=== PATIENT | female | born 1985 | race Caucasian/White ===

== ENCOUNTER → 2017-06-05 | Outpatient (CLI) | payer OTHER | LOC: FIMAGING 07:16 | PROVIDERS: ATTEND Advanced Practice Midwife | DX: O35.8XX0 Maternal care for other (suspected) fetal abnormality and damage, not applicable or unspecified (principal); Z3A.22 22 weeks gestation of pregnancy ==

== ENCOUNTER → 2017-07-10 | Outpatient (CLI) | payer OTHER | LOC: FIMAGING 14:58 | PROVIDERS: ATTEND Obstetrics & Gynecology | DX: O36.8930 Maternal care for other specified fetal problems, third trimester, not applicable or unspecified (principal); Z3A.27 27 weeks gestation of pregnancy ==

== ENCOUNTER → 2017-08-21 | Outpatient (CLI) | payer OTHER | LOC: FIMAGING 14:34 | PROVIDERS: ATTEND Advanced Practice Midwife | DX: O35.8XX0 Maternal care for other (suspected) fetal abnormality and damage, not applicable or unspecified (principal); Z3A.33 33 weeks gestation of pregnancy ==

== ENCOUNTER 2017-10-06 03:05 | Observation (INO) | payer OTHER ==
[2017-10-06] MEDS ORDERED: hydrOXYzine HCL 50 MG TAB PO ONE (07:32)
[2017-10-06] MEDS ORDERED: ACETAMINOPHEN 500 MG TAB PO ONE (07:32)
--- NOTE | 2017-10-06 07:34 | PDGENHP ---
History and Physical History and Physical: CARE: [facility] HPI: Patient is a 31 yo G 1 P 1 at 39.6 weeks ega who presents to L&D with complaints of painful contractions since midnight. Denies LOF/VB. Baby active. Tolerating contractions well at this time. States they have been getting stronger throughout night. EDC: 10/07/17 which is based on Ultrasound at 6.5 weeks. Her is complicated by: -h/o genital HSV I - prophylaxis tx with valtrex started at 36 weeks - no current outbreak/lesions - dilated left renal pelvis -per M recommended f/u with ped urology which pt declined. Plan to repeat left renal ultrasound at 2-4 weeks life - if persistent will refer to peds urology at that time. . Review of Systems: Constitutional: Denies any fever, chills, or fatigue HEENT: denies any visual changes, difficulty swallowing, hearing loss Cardiovascular: Denies any chest pain, palpitations, leg swelling Respiratory: denies any cough, wheezing, or shortness of breathe GI: Denies any nausea, vomiting, diarrhea, constipation : denies any dysuria, urgency, frequency, vaginal bleeding Musculoskeletal: denies any muscle or bone pain Skin: denies any rashes Neuro: denies any headache, seizures, lightheadedness, dizziness, or loss of consciousness Psychiatric: denies any depression, anxiety, or SI/HI thoughts HISTORY: Previous OB history: n/a Past medical history: Genital herpes- HSV I - last outbreak 10/2015 ( prophylactic valtrex started 36 weeks) Past surgical history: tonsillectomy age 17 Medications: PNV, iron, valtrex Allergies : clindamycin - bad rash LABS: Rh: B pos ABS: Neg Rubella: Immune HbsAg: NR HIV: NR VDRL: NR 1hr: 126 GC: Neg Chlamydia: Neg Pap: 11/01 WNL GBS: neg BMI: (prepreg) 26 PHYSICAL EXAM: Constitutional: WN, A&Ox3 HEENT: normocephalic atraumatic, supple Heart: RRR, no murmur Chest: CTA-B Abdomen: Soft, nontender, gravid SVE: 70/-1 posterior Extremities: trace edema, negative sammy's sign Neuro: grossly normal Psych: normal affect assessment: Reassuring FHTs, baseline 140s +accels, no decels, moderate variability Contractions: toco q 5-7 mild Assessment: 1) 31 yo G 1 P 0 with IUP@ 2) early latent phase labor with little cervical change after > 4 hours observation 3) GBS neg 4) Cat 1 FHR tracing Plan: Reviewed labor precautions with patient and the likelihood that this is early latent phase labor. Recommended going home with a dose of Vistaril and Tylenol and trying to rest, hydrate, and return to hospital when contractions are stronger and more regular, consistently less than 5 min apart, membranes rupture , decreased movement, or vaginal bleeding. Patient and comfortable with POC. All questions answered.
[2017-10-06] MEDS ORDERED: hydrOXYzine HCL 25 MG TAB PO ONE (07:45)
== END 2017-10-06 08:05 | disposition home or self-care (01) ==
LOC: FLD 03:05
PROVIDERS: ADMIT Obstetrics & Gynecology; ATTEND Obstetrics & Gynecology
DX: O47.1 False labor at or after 37 completed weeks of gestation (principal); O98.313 Other infections with a predominantly sexual mode of transmission complicating pregnancy, third trimester; Z3A.39 39 weeks gestation of pregnancy
CPT/HCPCS: 59025; G0378

== ENCOUNTER 2017-10-06 20:32 | Observation (INO) | payer OTHER ==
[2017-10-06] MEDS ORDERED: CYCLOBENZAPRINE 10 MG TAB PO ONE (21:00)
[2017-10-06] MEDS ORDERED: hydrOXYzine HCL 50 MG TAB PO ONE (22:30)
[2017-10-06] MEDS ORDERED: ACETAMINOPHEN 500 MG TAB PO ONE (22:32)
== END 2017-10-06 23:02 | disposition home or self-care (01) ==
LOC: FLD 20:32
PROVIDERS: ADMIT Advanced Practice Midwife; ATTEND Obstetrics & Gynecology
DX: O47.1 False labor at or after 37 completed weeks of gestation (principal); Z3A.39 39 weeks gestation of pregnancy

== ENCOUNTER 2017-10-07 08:45 | Inpatient (IN) | payer OTHER ==
[2017-10-07] MEDS ORDERED: TERBUTALINE SULFATE 1 MG/ML VIAL IV PRN (09:27)
[2017-10-07] MEDS ORDERED: OXYTOCIN/NORMAL SALINE 1,000 ML IV PRN (09:27)
[2017-10-07] MEDS ORDERED: LIDOCAINE 1% 300 MG/30 ML SDV SC PRN (09:27)
[2017-10-07] MEDS ORDERED: MISOPROSTOL 200 MCG TAB PR PRN (09:27)
[2017-10-07] MEDS ORDERED: LR 1,000 ML IV PRN (09:27)
[2017-10-07] MEDS ORDERED: EPSOM SALT 454 GM TP PRN (09:27)
[2017-10-07] MEDS ORDERED: OLIVE OIL 118 ML BTL MISC PRN (09:27)
[2017-10-07 10:19] LABS: PLATELET COUNT 221 10^3/uL (150-400)
--- NOTE | 2017-10-07 10:38 | PREANESOB ---
Obstetric Pre-Anesthesia Info - General Info Proposed Procedure: jamin NPO Start Time: 08:00 : 1 Para: 0 MYRIAM: 10/07/17 Gestational Age: 40 week(s) and 0 day(s) - Info Status: Full Term - Labor Status Cervical Dilation per last OB SVE: 3 Labor Epidural: Proposed Anesthesia Allergies/Adverse Reactions: Allergy/AdvReac Type Severity Reaction Status Date / Time clindamycin Allergy Severe Rash Verified 10/06/17 03:25 Home Medications: Medication Instructions Recorded Iron 1 tab PO DAILY 10/06/17 Dha 1 tab PO DAILY 10/06/17 Probiotic 1 tab PO DAILY 10/06/17 Valtrex PO DAILY 10/06/17 Visit Medications: Generic Name Dose Route Start Last Admin Trade Name Freq PRN Reason Stop Dose Admin Lactated Ringer's 1,000 mls @ 0 mls/hr 10/07/17 09:27 Lr IV 10/08/17 09:26 PRN PRN SEE PROTOCOL CONDITIONS Protocol Per Protocol Oxytocin/Sodium Chloride 1,000 mls @ 0 mls/hr 10/07/17 09:27 Pitocin 20 Units/Ns (Premix) IV PRN PRN Post Bleeding As Directed Ibuprofen 600 mg 10/07/17 09:27 Motrin PO 04/05/18 09:26 Q6HRS PRN post , inflammation Lidocaine HCl 300 mg 10/07/17 09:27 Lidocaine Hcl 1% SC 04/05/18 09:26 ONCE PRN episiotomy Magnesium Sulfate 454 gm 10/07/17 09:27 Epsom Salt TP 04/05/18 09:26 Q1H PRN perineal discomfort Misoprostol 800 - 1,000 mcg 10/07/17 09:27 Cytotec WA ONCE PRN Vaginal Atony/Bleeding [place] Oil 118 ml 10/07/17 09:27 Sweet Oil MISC 04/05/18 09:26 ONCE PRN perineal massage Terbutaline Sulfate 0.25 mg 10/07/17 09:27 Brethine IV 04/05/18 09:26 ONCE PRN Tachysystole - Anesthesia History Response to Local Anesthetics: Normal Anesthesia & Operative History: No Prior Problems Family Anesthesia History: Not Applicable - Social History Substance Use/Abuse: Denies - Vital Signs Latest Vital Signs (Nursing): per nursing Height/Weight (Nursing): Height 175.01 cm Weight 94.347 kg - Focused Exam Neck exam: FROM Mallampati Score: Class 2 Mouth exam: normal dental/mouth exam Pulmonary: no respiratory distress Cardiovascular: regular rate and rhythym Labs: 10/07/17 10:00 - Plan Anesthetic Plan: JAMIN Consent Signed and on Chart: Yes Patient/Guardian Understands and Agrees to Plan: Yes
--- NOTE | 2017-10-07 10:52 | GHP ---
[f rep st] PREOP HISTORY AND PHYSICAL DATE OF ADMISSION: 10/07/2017 ADMITTING DIAGNOSIS: Intrauterine at 40 weeks' gestation, in active labor. HISTORY OF PRESENT ILLNESS: The patient is a 32-year-old 1, para 0, with a last menstrual pe riod of 12/21/2016 and an EDC of 10/07/2017 confirmed by a 6-1/2 week ultrasound. She has had good p renatal care at [facility] since registration at 6 weeks. Her course has been com plicated only by a history of general HSV, and she has been on prophylaxis since 36 weeks, has no iss ues and the baby has a dilated left renal pelvis and needs Followup after delivery. She has had, oth er than those issues, normal ultrasounds, normal labs in this and has progressed to 40 week s. The patient began having contractions on the evening of the increased in intensity. She pre sented early in the morning on the and was found to be fingertip with irregular contractions. T he patient was discharged home with some medications for rest. She re-presented in the evening of and her cervix was only 1 cm. She was given options of IV morphine sleep here in the hospital versus discharge home again, with medications to rest. The patient opted to go home. She re-presen sonam with increasing contractions every 3-5 minutes the morning of the . On this exam, she is 130s reactive, moderate variability, category 1. She is magdaleno every 3 min utes. Cervix, per RN exam, is 3-4, 80%, -2 and anterior. The patient will be admitted for an epidural for pain control and active labor management. PAST OBSTETRIC HISTORY: The patient has no past obstetrical history. This is her first . PAST GYNECOLOGICAL HISTORY: MAC at age 15, interval 28-35 days, length of 34 days. She had a sure a nd regular last menstrual period in December of 2016. She does have a history of a genital HSV. No othe r history of STDs or abnormal Pap. She has used condoms in the past for control. PAST MEDICAL HISTORY: She has no chronic medical problems. No past medical history. PAST SURGICAL HISTORY: She had a tonsillectomy at age 17 and no other surgeries. ALLERGIES: She is allergic to clindamycin. It gives her a rash. MEDICATIONS: Include vitamins with DHA and acyclovir prophylaxis. LABORATORY DATA: She is B positive. Antibody negative. RPR nonreactive. Rubella immune. Hepatiti s negative. HIV negative. Pap normal. Gonorrhea and chlamydia normal. Verifi normal. AFP normal. 1-hour GTT 126. GBS is negative. SOCIAL HISTORY: The patient is to her . 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 Sh e denies tobacco, alcohol, and drug use. She was born in the [facility]. FAMILY HISTORY: Mother has chronic hypertension and migraines. Maternal grandfather had alcoholism and of stomach cancer. REVIEW OF SYSTEMS: 10-point review of systems is performed and is negative, except for labor symptom s as above. PHYSICAL EXAMINATION: VITAL SIGNS: She is afebrile. Vital signs are stable. Again, heart to fern 130s. Reactive moderate variability category 1. Contractions every 3-5 minutes. PELVIC: Cervical exam, per RN, is 3-4, 80% to 90%, -2 and anterior. I will repeat the exam when the patient is comfortable with her epidural. ASSESSMENT: A 32-year-old 1, para 0, at exactly 40 weeks gestation today, in active labor. PLAN: The patient will be admitted for epidural and active labor management. /[id number]/MODL
[2017-10-07] MEDS ORDERED: NALOXONE HCL 0.4 MG/ML INJ IVP PRN (11:03)
[2017-10-07] MEDS ORDERED: PHENYLEPHRINE HCL 100 MCG/ML SYR IVP PRN (11:03)
[2017-10-07] MEDS ORDERED: ONDANSETRON 4 MG/2 ML VIAL IVP PRN (11:03)
--- NOTE | 2017-10-07 11:14 | POSTANESTH ---
Post Anesthetic Evaluation Cardiovascular Status: Normal, Stable, Similar to Pre-Op Cond Respiratory Status: Normal, Stable, Similar to Pre-op Cond. Level of Consciousness/Mental Status: Can Participate in Eval, Alert and Oriented Pain Control: Adequate, Prn Tx Ordered Nausea/Vomiting Control: Adequate, Prn Tx Ordered Complications Possibly Related to Anesthesia: None Noted
[2017-10-07] MEDS ORDERED: LR 500 ML IV SCH (11:30)
[2017-10-07] MEDS ORDERED: fentaNYL 200 MCG, BUPIVACAINE 0.5% 20 ML in NS 100 ML EP SCH (11:30)
[2017-10-07] MEDS ORDERED: fentaNYL 2MCG/ML/BUP 0.1% RTU 100 ML EP SCH (11:30)
--- NOTE | 2017-10-07 12:32 | OBPROG ---
Labor Progress Note Assessment/Plan: Assessment: 32 y/o @ 40 weeks in active labor. Plan: Good cervical change and now AROM for clear fluid. Continue active labor management. status is reassuring. 10/07/17 12:30 Subjective/Intrapartum Course: 10/07/17 12:28 Pt is now comfortable with her epidural. She is resting. Objective: 10/07/17 10:00 Patient ABO/Rh B POSITIVE 10/07/17 10:00 - SVE Dilation (cm): 6 Effacement (%): 90 Station: -1 Membranes: AROM Amniotic Fluid Color: Clear - Contraction Pattern Assessment Current Contraction Pattern: Regular (Q 3-5) - FHR Assessment Smalls FHR (bpm): 130 FHR Pattern Variability: Moderate FHR Category: 1 - Procedures Non-surgical Procedures: Amniotomy - AP Antepartum Course: 10/07/17 12:29 H/o HSV on Acyclovir prophylaxis. Baby with L renal pylectasis, needs f/up post Oxytocin Orders Assessment - Pre-Induction/Augmentation Assessment Gestational Age: 40 week(s) and 0 day(s) ICD10 Worksheet Patient Problems: Problems Problem Status Onset Normal labor Acute - ICD10 Problem Qualifiers (1) Normal labor
[2017-10-07] MEDS ORDERED: LR 500 ML IV PRN (14:04)
--- NOTE | 2017-10-07 14:04 | OBPROG ---
Labor Progress Note Assessment/Plan: Assessment: 32 y/o @ 40 weeks in active labor. Plan: Good cervical change and now AROM for clear fluid. Continue active labor management. status is reassuring. will begin pitocin if needed to keep active contraction pattern. 10/07/17 12:30 10/07/17 14:03 Subjective/Intrapartum Course: 10/07/17 12:28 Pt is now comfortable with her epidural. She is resting. 10/07/17 14:02 Pt remains comfortable with her epidural. She is aware of mild contractions. Objective: 10/07/17 10:00 Patient ABO/Rh B POSITIVE 10/07/17 10:00 - SVE Dilation (cm): 8 Effacement (%): 80 Station: 0 Membranes: AROM Amniotic Fluid Color: Clear - Contraction Pattern Assessment Current Contraction Pattern: Regular (Q 3-5) - FHR Assessment Smalls FHR (bpm): 130 FHR Pattern Variability: Moderate FHR Category: 1 - Procedures Non-surgical Procedures: Amniotomy - AP Antepartum Course: 10/07/17 12:29 H/o HSV on Acyclovir prophylaxis. Baby with L renal pylectasis, needs f/up post Oxytocin Orders Assessment - Pre-Induction/Augmentation Assessment Gestational Age: 40 week(s) and 0 day(s) ICD10 Worksheet Patient Problems: Problems Problem Status Onset Normal labor Acute - ICD10 Problem Qualifiers (1) Normal labor
[2017-10-07] MEDS ORDERED: OXYTOCIN/NORMAL SALINE 500 ML IV SCH (14:30)
--- NOTE | 2017-10-07 15:56 | OBPROG ---
Labor Progress Note Assessment/Plan: Assessment: 32 y/o @ 40 weeks in active labor. Plan: Pitocin is running now to develop a good labor pattern. Slow cervical change, but good descent of head. Continue current plan and epidural. 10/07/17 12:30 10/07/17 14:03 10/07/17 15:55 Subjective/Intrapartum Course: 10/07/17 12:28 Pt is now comfortable with her epidural. She is resting. 10/07/17 14:02 Pt remains comfortable with her epidural. She is aware of mild contractions. 10/07/17 15:54 Pt is feeling some contractions more on her left side. Some pelvic pressure. Objective: 10/07/17 10:00 Patient ABO/Rh B POSITIVE 10/07/17 10:00 - SVE Dilation (cm): 8 Effacement (%): 90 Station: +1 Membranes: AROM Amniotic Fluid Color: Clear - Contraction Pattern Assessment Current Contraction Pattern: Regular (Q 2-4) - FHR Assessment Smalls FHR (bpm): 130 FHR Pattern Variability: Moderate FHR Category: 1 - Procedures Non-surgical Procedures: Amniotomy - AP Antepartum Course: 10/07/17 12:29 H/o HSV on Acyclovir prophylaxis. Baby with L renal pylectasis, needs f/up post Oxytocin Orders Assessment - Pre-Induction/Augmentation Assessment Gestational Age: 40 week(s) and 0 day(s) ICD10 Worksheet Patient Problems: Problems Problem Status Onset Normal labor Acute - ICD10 Problem Qualifiers (1) Normal labor
[2017-10-07] MEDS ORDERED: HYDROCODONE/APAP 5/325 TAB PO PRN (19:21)
[2017-10-07] MEDS ORDERED: HYDROCORTISONE 0.5% CREAM TP PRN (19:21)
[2017-10-07] MEDS ORDERED: ACETAMINOPHEN 325 MG TAB PO PRN (19:21)
[2017-10-07] MEDS ORDERED: SIMETHICONE 80 MG TAB CHEW PO PRN (19:21)
--- NOTE | 2017-10-07 19:25 | OBDEL ---
Info Type: Vaginal Presentation at Delivery: Vertex L&D Analgesia/Anesthesia Type: Epidural GBS+: No Intrapartum Medications: Generic Name Dose Route Start Last Admin Trade Name Freq PRN Reason Stop Dose Admin Lactated Ringer's 1,000 mls @ 0 mls/hr 10/07/17 09:27 10/07/17 10:30 Lr IV 10/08/17 09:26 1,000 mls PRN PRN Administration SEE PROTOCOL CONDITIONS Protocol Per Protocol Oxytocin/Sodium Chloride 500 mls @ 0 mls/hr 10/07/17 14:30 10/07/17 15:02 Pitocin 30 Units/Ns (Premix) IV 04/05/18 14:29 500 mls CONT SUNDEEP Administration Protocol Per Protocol - Hospital Course Intrapartum: 10/07/17 12:28 Pt is now comfortable with her epidural. She is resting. 10/07/17 14:02 Pt remains comfortable with her epidural. She is aware of mild contractions. 10/07/17 15:54 Pt is feeling some contractions more on her left side. Some pelvic pressure. Indications for Delivery: Spontaneous Labor Vaginal Delivery - Delivery Provider Delivery Physician/CNM: Kelley Garcia - Labor and Delivery Onset of Contractions Date: 10/07/17 Onset of Contractions Time: 01:00 Onset of Contractions Type: Augmented Rupture of Membranes Date: 10/07/17 Rupture of Membranes Time: 12:26 Rupture of Membranes Type: Artificial Amniotic Fluid Color: Clear Dilation Complete Date: 10/07/17 Dilation Complete Time: 18:22 Placenta Delivery Date: 10/07/17 Placenta Delivery Time: 19:09 Total Hours of Labor: 18 Non-surgical Procedures: Amniotomy Laceration: 1st Degree Repair: 3-0, Vicryl Vaginal Sponge Count Correct: Yes Vaginal Needle Count Correct: Yes Vaginal Sweep Performed: No EBL: 200 Delivery Events: Nuchal Cord (loose x 1) - Medications Labor Augmentation/Induction Methods Used: Pitocin Labor Augmentation/Induction Indication: Inadequate Ctx Strength Data MYRIAM: 10/07/17 Gestational Age: 40 week(s) and 0 day(s) Smalls Delivery Date: 10/07/17 Delivery Time: 19:05 Sex of Infant: Female Score (1 Min): 8 Score (5 Min): 9 ICD10 Worksheet Patient Problems: Problems Problem Status Onset Normal labor Acute (spontaneous vaginal delivery) Acute - ICD10 Problem Qualifiers (1) Normal labor (2) (spontaneous vaginal delivery)
[2017-10-07] MEDS: IBUPROFEN 600 MG TAB PO PRN (20:14)
[2017-10-08] MEDS: IBUPROFEN 600 MG TAB PO PRN ×2 (06:37→20:00)
[2017-10-08] MEDS: DOCUSATE SODIUM 100 MG CAP PO PRN (08:53)
--- NOTE | 2017-10-08 11:00 | POSTANESTH ---
Post Anesthetic Evaluation Cardiovascular Status: Normal, Stable, Similar to Pre-Op Cond Respiratory Status: Normal, Stable, Similar to Pre-op Cond. Level of Consciousness/Mental Status: Can Participate in Eval, Alert and Oriented Pain Control: Adequate, Prn Tx Ordered Nausea/Vomiting Control: Adequate, Prn Tx Ordered Complications Possibly Related to Anesthesia: None Noted Notes: POD 1 s/p , w/ PCEA. Pain control rated as excellent-- "I couldn't have done it without the epidural". Block has resolved completely, able to ambulate without difficulty. No N/V/VIEIRA. Back site is c/d/i, no e/e/e. No apparent adverse effects from the epidural.
--- NOTE | 2017-10-08 15:39 | OBPP ---
Progress Note Assessment/Plan: Assessment: 32 G1 PPd#1 s/p , doing well. Plan:Continue routine pp cares. 10/08/17 15:45 Subjective/ Course: 10/08/17 15:41 Pt doing well. Working on . Mod lochia. Ambulating and voiding without difficulty. Pain well controlled. Objective: 10/07/17 10:00 Patient ABO/Rh B POSITIVE 10/07/17 10:00 Temp Pulse Resp BP Pulse Ox 36.8 C 72 16 99/68 L 96 10/08/17 08:30 10/08/17 08:30 10/08/17 08:30 10/08/17 08:30 10/07/17 23:17 gen - pleasant NAD CV - RRR chest - CTAB abd - soft, fundus firm at u-2 ext - tr edema, calves NT Uterine Position/Fundal Height: Umbilicus -2 Uterine Tone: Firm
[2017-10-09 08:48] VITALS: BP 105/69
[2017-10-09] MEDS: DOCUSATE SODIUM 100 MG CAP PO PRN (09:00)
--- NOTE | 2017-10-09 10:33 | OBGCSDC ---
General Delivery Information - General Info : 1 Para: 0 Abortions: 0 Type: Vaginal L&D Analgesia/Anesthesia Type: Epidural Admission Date: 10/07/17 Labs: Patient ABO/Rh B POSITIVE 10/07/17 10:00 Hct 38.1 % (38.0-47.0) 10/07/17 10:00 - Hospital Course Antepartum: 10/07/17 12:29 H/o HSV on Acyclovir prophylaxis. Baby with L renal pylectasis, needs f/up post Intrapartum: 10/07/17 12:28 Pt is now comfortable with her epidural. She is resting. 10/07/17 14:02 Pt remains comfortable with her epidural. She is aware of mild contractions. 10/07/17 15:54 Pt is feeling some contractions more on her left side. Some pelvic pressure. : 10/08/17 15:41 Pt doing well. Working on . Mod lochia. Ambulating and voiding without difficulty. Pain well controlled. 10/09/17 10:30 S) Pt doing well, reports min pain and bleeding. she is ambulating and voiding without difficulty. She is . She desires discharge home today. O) VSS, afebrile constitutional: WNWF, A&Ox3 HEENT: normocephalic, atraumatic, supple Heart: RRR, No murmur Chest: CTA-B Abdomen: Soft, nontender Uterus: Firm at U-2 Lochia: Minimal rubra Perineum: Intact, healing well Extremities: Trace edema, and negative Alok's sign Neuro: Grossly normal A) 32 year-old S/P PPD#2 P) Discharge home today Continue Pelvic rest x6wks Discussed danger signs (infection, preeclampsia, depression, heavy bleeding, etc) RTO in 4/6 weeks Vaginal - Delivery Provider Delivery Physician/CNM: Kelley Garcia - Diagnosis Labor: Augmented Rupture of Membranes Type: Artificial Amniotic Fluid Color: Clear Laceration: 1st Degree Repair: 3-0, Vicryl Delivery Events: Nuchal Cord (loose x 1) - Procedures Non-surgical Procedures: Amniotomy - Delivery Non-surgical Procedures: Amniotomy EBL: 200 Jackson Data MYRIAM: 10/07/17 Gestational Age: 40 week(s) and 2 day(s) Smalls Delivery Date: 10/07/17 Delivery Time: 19:05 Sex of Infant: Female Jackson Weight (gm): 3798.836 g Score (1 Min): 8 Score (5 Min): 9 Discharge Information - Discharge Information Condition: Good Instruction/Follow Up: Four Weeks, Six Weeks
== END 2017-10-09 12:19 | disposition home or self-care (01) | DRG 774 ==
LOC: FLD 08:45 → OBSVTOIN 08:45 → FOB 21:17
PROVIDERS: ADMIT Obstetrics & Gynecology; ATTEND Obstetrics & Gynecology
PROC: 10E0XZZ Delivery of Products of Conception, External Approach (ICD-10-PCS; principal; 2017-10-07)
PROC: 0HQ9XZZ Repair Perineum Skin, External Approach (ICD-10-PCS; principal; 2017-10-07)
PROC: 10907ZC Drainage of Amniotic Fluid, Therapeutic from Products of Conception, Via Natural or Artificial Opening (ICD-10-PCS; principal; 2017-10-07)
DX: O98.52 Other viral diseases complicating childbirth (principal); Z37.0 Single live birth; Z3A.40 40 weeks gestation of pregnancy; B00.9 Herpesviral infection, unspecified; O70.0 First degree perineal laceration during delivery; O69.82X0 Labor and delivery complicated by other cord entanglement, without compression, not applicable or unspecified
CPT/HCPCS: J2590; J3010

== ENCOUNTER → 2017-10-22 | Outpatient (CLI) | payer OTHER | LOC: FLACT 09:57 | PROVIDERS: ATTEND Obstetrics & Gynecology | DX: Z39.1 Encounter for care and examination of lactating mother (principal) | CPT/HCPCS: G0463 ==